=== PATIENT | female | born 1995 ===

== ENCOUNTER 2024-04-14 13:14 | Outpatient (CLI) | payer OTHER | END 2024-04-14 13:17 | disposition home or self-care (01) | LOC: PRENATAL 13:14 | PROVIDERS: ATTEND Obstetrics & Gynecology Maternal & Fetal Medicine | DX: O36.80X0 Pregnancy with inconclusive fetal viability, not applicable or unspecified (principal); Z36.82 Encounter for antenatal screening for nuchal translucency; Z3A.12 12 weeks gestation of pregnancy ==

== ENCOUNTER 2024-06-09 12:02 | Outpatient (CLI) | payer OTHER | END 2024-06-09 14:01 | disposition home or self-care (01) | LOC: PRENATAL 12:02 | PROVIDERS: ATTEND Obstetrics & Gynecology Maternal & Fetal Medicine | DX: O44.00 Complete placenta previa NOS or without hemorrhage, unspecified trimester (principal); Z3A.17 17 weeks gestation of pregnancy ==

== ENCOUNTER → 2024-09-01 13:20 | Outpatient (CLI) | payer OTHER | END | disposition home or self-care (01) | LOC: PRENATAL 13:20 | PROVIDERS: ATTEND Obstetrics & Gynecology Maternal & Fetal Medicine | DX: O26.843 Uterine size-date discrepancy, third trimester (principal); O36.8130 Decreased fetal movements, third trimester, not applicable or unspecified; Z3A.34 34 weeks gestation of pregnancy ==

== ENCOUNTER 2024-09-08 09:57 | Outpatient (CLI) | payer OTHER ==
[~2024-09-08] VITALS: Ht 162.6 cm; Wt 112.0 kg
[2024-09-08 09:11] VITALS: BP 113/68
[2024-09-08] MEDS ORDERED: RINGERS SOLUTION,LACTATED 1,000 ML IV SCH (10:15)
[2024-09-08 10:54] LABS: URINE APPEARANCE Clear; URINE BILIRRUBIN Negative (NEGATIVE); URINE BLOOD Negative; URINE COLOR Yellow; URINE GLUCOSE Negative (NEGATIVE); URINE KETONE Negative (NEGATIVE); URINE LEUKOCYTE Negative; URINE NITRATE Negative; URINE PROTEIN Negative (NEGATIVE); URINE UROBILINOGEN 0.2 E.U./dl
[2024-09-08 10:54] LABS: HEMATOCRIT 38.9 % (36.0-45.00); HEMOGLOBIN 12.9 g/dL (12.0-15.00); MEAN CELL VOLUME 88.8 fL (80.00-100.00); MEAN CORPUSCULAR HEMOGLOBIN 29.5 pg (27.00-32.0); MEAN CORPUSCULAR HGB CONC 33.2 g/dl (32.0-36.0); PLATELET COUNT 176 K/uL (150-450); RED BLOOD COUNT 4.38 M/uL (4.00-6.00); RED CELL DISTRIBUTION WIDTH 14.2 % (11.5-14.5)
[2024-09-08 10:55] LABS: URINE EPITHELIAL CELLS 22.3 uL (0.0-38.8); URINE RBC 4.1 uL (0.0-20.8); URINE WBC 9.1 uL (0.0-23.2)
[2024-09-08] MEDS ORDERED: PRENATABS RX T1 EACH PO (11:06)
[2024-09-08 11:21] LABS: INR 0.97; PARTIAL THROMBOPLASTIN TIME 29.5 SECONDS (22.0-34.0); PROTHROMBIN TIME 10.6 SECONDS (9.0-11.5)
[2024-09-08 11:23] LABS: URINE CAST 0.14 uL (0.0-1.40)
[2024-09-08 11:30] LABS: ALBUMIN 2.5 gm/dL (3.4-5.0); BILIRUBIN TOTAL 0.23 mg/dL (0.3-1.2); CALCIUM 8.9 mg/dL (8.5-10.1); CREATININE SERUM 0.56 mg/dL (0.55-1.02); GFR 127.11; GLOBULINA 3.9 G/DL (2.4-3.5); POTASSIUM 4.4 mEq/L (3.5-5.1); TOTAL PROTEIN 6.4 gm/dL (6.4-8.2)
[2024-09-08 12:50] VITALS: BP 96/64
[2024-09-08 15:05] VITALS: BP 82/46
== END 2024-09-08 19:02 | disposition home or self-care (01) ==
LOC: OBS/DEL 09:57
PROVIDERS: ATTEND Obstetrics & Gynecology
DX: O26.853 Spotting complicating pregnancy, third trimester (principal); O26.849 Uterine size-date discrepancy, unspecified trimester; O36.8199 Decreased fetal movements, unspecified trimester, other fetus; O60.00 Preterm labor without delivery, unspecified trimester; Z3A.33 33 weeks gestation of pregnancy

== ENCOUNTER → 2024-09-30 15:06 | Outpatient (CLI) | payer OTHER ==
[~2024-09-30 15:06] MED LIST: PRENATABS RX T1 EACH PO
== END | disposition home or self-care (01) ==
LOC: PRENATAL 15:06
PROVIDERS: ATTEND Obstetrics & Gynecology Maternal & Fetal Medicine
DX: O26.849 Uterine size-date discrepancy, unspecified trimester (principal); O36.8199 Decreased fetal movements, unspecified trimester, other fetus; O36.60X0 Maternal care for excessive fetal growth, unspecified trimester, not applicable or unspecified; Z3A.38 38 weeks gestation of pregnancy

== ENCOUNTER 2024-10-07 16:46 | Inpatient (IN) | payer OTHER ==
[~2024-10-07] VITALS: Ht 165.1 cm; Wt 3.6 kg
[2024-10-07 17:07] VITALS: BP 107/73
[2024-10-07 17:27] LABS: HEMATOCRIT 39.2 % (36.0-45.00); HEMOGLOBIN 13.5 g/dL (12.0-15.00); MEAN CELL VOLUME 86.5 fL (80.00-100.00); MEAN CORPUSCULAR HEMOGLOBIN 29.7 pg (27.00-32.0); MEAN CORPUSCULAR HGB CONC 34.4 g/dl (32.0-36.0); PLATELET COUNT 193 K/uL (150-450); RED BLOOD COUNT 4.53 M/uL (4.00-6.00); RED CELL DISTRIBUTION WIDTH 14.2 % (11.5-14.5)
[2024-10-07 17:41] LABS: INR 0.95; PROTHROMBIN TIME 10.4 SECONDS (9.0-11.5)
[2024-10-07 17:46] LABS: ALBUMIN 2.5 gm/dL (3.4-5.0); BILIRUBIN TOTAL 0.32 mg/dL (0.3-1.2); CALCIUM 8.7 mg/dL (8.5-10.1); CREATININE SERUM 0.6 mg/dL (0.55-1.02); GFR 117.38; POTASSIUM 4.38 mEq/L (3.5-5.1); TOTAL PROTEIN 6.5 gm/dL (6.4-8.2)
[2024-10-07] MEDS ORDERED: RINGERS SOLUTION,LACTATED 1,000 ML IV SCH (18:00)
[2024-10-07 18:22] VITALS: BP 107/73
[2024-10-07 19:06] VITALS: BP 113/67
[2024-10-07] MEDS ORDERED: AMPICILLIN SODIUM 2,000 MG VIAL IV SCH (20:15)
[2024-10-07] MEDS ORDERED: AMPICILLIN SODIUM 2,000 MG VIAL ONE (20:18)
[2024-10-07 23:24] VITALS: BP 110/64
[2024-10-07] MEDS ORDERED: AMPICILLIN SODIUM 1,000 MG VIAL ONE (23:34)
[2024-10-08] MEDS ORDERED: AMPICILLIN SODIUM 1,000 MG VIAL IV SCH
[2024-10-08] MEDS ORDERED: AMPICILLIN SODIUM 1,000 MG VIAL ONE (03:47)
[2024-10-08 04:00] VITALS: BP 116/72
[2024-10-08 06:12] VITALS: BP 97/63; O2SAT 98
[2024-10-08 11:17] VITALS: BP 104/67
[2024-10-08] MEDS ORDERED: CEFAZOLIN SODIUM 1,000 MG VIAL ONE (12:52)
[2024-10-08] MEDS ORDERED: OXYTOCIN 10 UNITS/ML VIAL ONE (14:58)
[2024-10-08] MEDS ORDERED: ERYTHROMYCIN BASE OPHT 1GM EACH TUBE OP ONE (14:58)
[2024-10-08] MEDS ORDERED: MEPERIDINE HCL/PF 50 MG/ML VIAL IM PRN (18:30)
[2024-10-08] MEDS ORDERED: PROMETHAZINE HCL 50 MG/ML AMPUL IM PRN (18:30)
[2024-10-08] MEDS ORDERED: MORPHINE SULFATE 4 MG/ML VIAL IV ONE (19:10)
[2024-10-08] MEDS ORDERED: KETOROLAC TROMETHAMINE 30 MG VIAL ONE (19:53)
[2024-10-08] MEDS ORDERED: CEFAZOLIN SODIUM 1,000 MG VIAL IV SCH (20:15)
[2024-10-08] MEDS ORDERED: KETOROLAC TROMETHAMINE 30 MG VIAL IV SCH (21:00)
[2024-10-08 22:38] VITALS: BP 119/72
[2024-10-09] VITALS: BP 120/71
[2024-10-09 04:00] VITALS: BP 103/66
[2024-10-09 08:00] VITALS: BP 107/71
[2024-10-09] MEDS ORDERED: PNV,CALCIUM 72/IRON/FOLIC ACID 1 TAB TABLET PO SCH (08:00)
[2024-10-09] MEDS ORDERED: OxyCODONE HCL/APAP UD (PERCOCET) PO PRN (08:00)
[2024-10-09] MEDS ORDERED: IBUprofen 800 MG TABLET PO SCH (09:00)
[2024-10-09] MEDS ORDERED: DOCUSATE SODIUM 100MG CAP PO SCH (09:00)
[2024-10-09] MEDS ORDERED: SIMETHICONE 125 MG CAPSULE PO SCH (09:00)
[2024-10-09 10:56] LABS: HEMATOCRIT 30.5 % (36.0-45.00); HEMOGLOBIN 10.4 g/dL (12.0-15.00); MEAN CELL VOLUME 86.5 fL (80.00-100.00); MEAN CORPUSCULAR HEMOGLOBIN 29.5 pg (27.00-32.0); MEAN CORPUSCULAR HGB CONC 34.1 g/dl (32.0-36.0); PLATELET COUNT 144 K/uL (150-450); RED BLOOD COUNT 3.52 M/uL (4.00-6.00); RED CELL DISTRIBUTION WIDTH 14.1 % (11.5-14.5)
[2024-10-09 16:59] VITALS: BP 116/72
[2024-10-09 23:55] VITALS: BP 110/75
[2024-10-10 09:24] VITALS: BP 108/71
[2024-10-10 12:38] VITALS: BP 112/73
[2024-10-10 15:11] VITALS: BP 113/73
[2024-10-10 20:14] VITALS: BP 110/71
[2024-10-11] VITALS: BP 111/68
[2024-10-11 09:15] VITALS: BP 120/63
== END 2024-10-11 12:53 | disposition home or self-care (01) | DRG 788 ==
LOC: OBS/DEL 16:46 → LDR 18:21 → OBS/DEL 18:21 → O/R 10-08 15:24 → OB/GYN 10-08 18:00
PROVIDERS: ADMIT Obstetrics & Gynecology; ATTEND Obstetrics & Gynecology
PROC: 4A1HXCZ Monitoring of Products of Conception, Cardiac Rate, External Approach (ICD-10-PCS; 2024-10-07)
PROC: 10D00Z1 Extraction of Products of Conception, Low, Open Approach (ICD-10-PCS; principal; 2024-10-08 18:30)
DX: O36.63X0 Maternal care for excessive fetal growth, third trimester, not applicable or unspecified (principal); O32.1XX0 Maternal care for breech presentation, not applicable or unspecified; O33.5XX0 Maternal care for disproportion due to unusually large fetus, not applicable or unspecified; O14.94 Unspecified pre-eclampsia, complicating childbirth; Z3A.37 37 weeks gestation of pregnancy; Z37.0 Single live birth